=== PATIENT | male | born 1960 | race Caucasian/White ===

== ENCOUNTER 2020-07-18 07:59 | Outpatient (RCR) | payer MEDICAID, SELFPAY ==
--- NOTE | 2020-07-18 09:28 | HP.OTEVAL ---
Patient's Visit Information RIVER GOSS is a 60 year old M, referred to Occupational Therapy by Dr. Dora Aguilera MD, with a diagnosis of LE lymphedema. Date of Evaluation: 07/18/20 Occupational Therapist: Aria Burns, OTR/L, CHT - Subjective This 60 year old male was seen for OT eval with dx of LE lymphedema. pt states in 2004 he developed cellulitis in he abdomen and in 2008 Left LE cellulitis. pt states he has used zabrina hose 3x week and has been using them since 2008. pt states he does not know why his legs swell.. - Lymphedema (Circumferential Measure) Mid-foot: right 26cm left 28cm Ankle: right 37cm left 37cm Lower calf: right 51cm left 49cm Largest calf: right 58cm left 58cm Below knee: right 50cm left 50cm - Lower Limb Functional Index Lower Extremity Functional Score: 45 - Goals Demonstrate a 20% reduction in edema by d/c: Yes Demonstrate adequate knowledge of self-bangaging by 1st week: Yes Demonstrate adequate knowledge skin care/prec by 2nd week: Yes Demonstrate adequate knowledge therapeutic exercises by d/c: Yes Select approp compression garment w/donning/care/wear by d/c: Yes Voice need to replace compression garment every 4-6mo by dc: Yes - Rehabilitation General Assessment: pt demo with stage 3 lymphedema and would benefit from skilled OT 1x week for 3 weeks to ed. pt on lymphedema mtg and to ensure pt recived compression socks. Today therapist ec. pt on the differance in zabrina hose and compression socks 20-30mmHg, skin care and precautions, and lymph ex. pt demo understanding and agree to POC. Rehabilitation Potential: Fair - Anticipated Interventions Manual Lymph Drainage, Education re Life-long lymphedema Management, Education re Self-Bandaging Techniques, Education re Skin Care and Precautions, Education re Correct Donning Tech,Care&Wearing Sched Comp Garments, Home Program - Visit Plan Frequency: Every Other Week Duration: 3 Weeks TEXT: Thank you for the opportunity to evaluate your patient. For Medicare and Medicare HMO plans, please review the plan of care and approve it. It will need to be FAXED BACK to us at [phone] for Medicare purposes. Please let me know if there are questions or concerns regarding this plan of care. Physician Signature: Date:
--- NOTE | 2020-09-09 12:51 | HP.OT.NRP ---
RIVER GOSS was seen in my office for initial evaluation on 07/18/20. The following Plan of Care was established for this patient: Initial Frequency: Every Other Week Initial Duration: 3 Weeks Anticipated Interventions: Manual Lymph Drainage, Education re Life-long lymphedema Management, Education re Self-Bandaging Techniques, Education re Skin Care and Precautions, Education re Correct Donning Tech,Care&Wearing Sched Comp Garments, Home Program This patient was last seen in our office 07/18/20. Pertinent comments regarding their Occupational therapy will appear below: pt attended OT eval only- pt did not attend any follow-up visits. Due to time lapse in services pt d/c. At this point I will be discontinuing this patient from occupational therapy. I would be happy to see this patient again in the future if found appropriate by the physician. Thank you! Aria Burns, OTR/L, CHT
== END 2020-07-18 19:00 | disposition home or self-care (01) ==
LOC: OT 07:59
PROVIDERS: PCP Internal Medicine; Referring Provider Internal Medicine; Visit Provider Internal Medicine
DX: I89.0 Lymphedema, not elsewhere classified (principal)
CPT/HCPCS: 97166; 97530